=== PATIENT | female | born 1940 | race Two or more races ===

== ENCOUNTER 2024-05-23 07:15 | Day surgery (SDC) | payer OTHER ==
[2024-05-23] MEDS ORDERED: fentaNYL CITRATE 50 MCG/ML AMPUL IV ONE (10:00)
[2024-05-23] MEDS ORDERED: MIDAZOLAM HCL 2 MG/2 ML VIAL IV ONE (10:00)
== END 2024-05-23 11:30 | disposition home or self-care (01) ==
LOC: AMB-ENDOS 07:15
PROVIDERS: ATTEND Surgery
DX: K57.30 Diverticulosis of large intestine without perforation or abscess without bleeding (principal); K62.5 Hemorrhage of anus and rectum; K64.8 Other hemorrhoids; Z88.0 Allergy status to penicillin

== ENCOUNTER 2024-12-08 10:15 | Inpatient (IN) | payer OTHER ==
[~2024-12-08] VITALS: Ht 149.9 cm; Wt 44.0 kg
[2024-12-08 12:04] LABS: BASO % 0.3 % (0.1-1.2); EOS # 0.04 (0.04-0.54); EOS % 0.5 % (0.7-7.0); LYMPH # 2.20 (1.18-3.74); LYMPH % 24.9 % (19.3-53.1); MEAN PLATELET VOLUME 10.10 fl (9.4-12.4); MONO # 0.52 (0.24-0.82); MONO % 5.9 % (4.7-12.5); NEUT # 6.01 (1.56-6.13); NEUT % 68.1 % (34.0-71.1); RED CELL DISTRIBUTION WIDTH 14.0 % (11.6-14.4)
[2024-12-08 12:08] LABS: URINE APPEARANCE Clear; URINE BILIRRUBIN Negative (NEGATIVE); URINE BLOOD Moderate; URINE COLOR Dark Yellow; URINE GLUCOSE Negative (NEGATIVE); URINE KETONE Trace (NEGATIVE); URINE LEUKOCYTE Trace; URINE NITRATE Negative; URINE PROTEIN 30 (NEGATIVE); URINE UROBILINOGEN 0.2 E.U./dl
[2024-12-08 12:13] LABS: URINE BACTERIA 52.7 uL (0.0-1933); URINE EPITHELIAL CELLS 16.4 uL (0.0-38.8); URINE RBC 234.8 uL (0.0-20.8); URINE WBC 85.5 uL (0.0-23.2)
[2024-12-08 12:17] LABS: URINE CAST 0.43 uL (0.0-1.40)
[2024-12-08 12:28] LABS: INR 1.01
[2024-12-08 12:48] LABS: ALT/SGPT 40.0 U/L (12-78); AST/SGOT 28.0 U/L (15-37); BILIRUBIN TOTAL 0.47 mg/dL (0.3-1.2); BUN CREA RATIO 22.0 (7.0-25.0); CREATININE SERUM 0.91 mg/dL (0.55-1.02); GFR 58.75; GLOBULINA 3.2 G/DL (2.4-3.5); GLUCOSE FASTING 106.0 mg/dL (65-100); OSMOLALITY SERUM 282.0 MOSM/KG (275-295)
[2024-12-08] MEDS ORDERED: LIPITOR20 MG (13:25)
[2024-12-08] MEDS ORDERED: VASOTEC20 MG PO (13:25)
[2024-12-08] MEDS ORDERED: LEVOTHYROXINE25 MCG PO (13:25)
[2024-12-08] MEDS ORDERED: MAXIMUM D3325 MCG PO (13:26)
[2024-12-08] MEDS ORDERED: [UNRECOGNIZED DRUG - OTHER] (13:26)
[2024-12-08] MEDS ORDERED: TRAZODONE HCL100 MG PO (13:27)
[2024-12-08] MEDS ORDERED: ALENDRONATE SOD70 MG PO (13:27)
[2024-12-08] MEDS ORDERED: GALANTAMINE HBR24 MG PO (13:27)
[2024-12-08] MEDS ORDERED: CENTRUM ADULTS1 EACH PO (13:28)
[2024-12-12] MEDS ORDERED: METRONIDAZOLE/SODIUM CHLORIDE 500 MG/100 ML PIGGYBACK IV ONE ×2 (11:37→17:13)
[2024-12-12] MEDS ORDERED: OxyCODONE HCL 5 MG TABLET (ROXICODONE) PO PRN (13:45)
[2024-12-12] MEDS ORDERED: ONDANSETRON HCL 2 MG/ML VIAL IV PRN (13:45)
[2024-12-12] MEDS ORDERED: RINGERS SOLUTION,LACTATED 1,000 ML IV SCH (13:45)
[2024-12-12] MEDS ORDERED: MORPHINE SULFATE 4 MG/ML CARTRIDGE IV PRN (13:45)
[2024-12-12] MEDS ORDERED: ONDANSETRON HCL 2 MG/ML VIAL ONE (14:32)
[2024-12-12] MEDS ORDERED: ONDANSETRON HCL 2 MG/ML VIAL IV ONE (14:35)
[2024-12-12] MEDS ORDERED: METRONIDAZOLE/SODIUM CHLORIDE 500 MG/100 ML PIGGYBACK IV SCH (17:00)
[2024-12-12] MEDS ORDERED: CIPROFLOXACIN IN 5 % DEXTROSE 400 MG/200 ML PIGGYBAG IV SCH (17:00)
[2024-12-12] MEDS ORDERED: HYOSCYAMINE SULFATE 0.125 MG TAB.SUBL SL SCH (17:00)
[2024-12-12] MEDS ORDERED: GABAPENTIN 300 MG CAPSULE PO SCH (17:00)
[2024-12-12] MEDS ORDERED: LACTOBACILLUS ACIDOPHILUS 1 CAP CAP PO SCH (17:00)
[2024-12-12] MEDS ORDERED: TAMSULOSIN HCL 0.4 MG CAP PO SCH (17:00)
[2024-12-12] MEDS ORDERED: GABAPENTIN 300 MG CAPSULE PO ONE (17:13)
[2024-12-12] MEDS ORDERED: TAMSULOSIN HCL 0.4 MG CAP PO ONE (17:13)
[2024-12-12] MEDS ORDERED: CIPROFLOXACIN IN 5 % DEXTROSE 400 MG/200 ML PIGGYBAG IV ONE (17:13)
[2024-12-12] MEDS ORDERED: HYOSCYAMINE SULFATE 0.125 MG TAB.SUBL ONE (17:13)
[2024-12-12] MEDS ORDERED: ACETAMINOPHEN 500 MG GEL..CAP PO SCH (18:00)
[2024-12-12 18:59] VITALS: BP 130/72; O2SAT 97
[2024-12-12] MEDS ORDERED: PATIENTS OWN MEDICATION (MEDICAMENTO EN PHA) PO SCH (21:00)
[2024-12-12] MEDS ORDERED: FAMOTIDINE/PF 20 MG/2 ML VIAL IV PUSH SCH (21:00)
[2024-12-13] VITALS (8 sets, daily range): BP systolic 96–116; BP diastolic 63–71; O2SAT 90–97
[2024-12-13] MEDS ORDERED: PATIENTS OWN MEDICATION (MEDICAMENTO EN PISO) PO SCH ×2 (06:00→09:00)
[2024-12-13 07:54] LABS: BASO % 0.3 % (0.1-1.2); EOS # 0.00 (0.04-0.54); EOS % 0.0 % (0.7-7.0); LYMPH # 1.24 (1.18-3.74); LYMPH % 11.3 % (19.3-53.1); MEAN PLATELET VOLUME 10.20 fl (9.4-12.4); MONO # 0.75 (0.24-0.82); MONO % 6.9 % (4.7-12.5); NEUT # 8.89 (1.56-6.13); NEUT % 81.3 % (34.0-71.1); RED CELL DISTRIBUTION WIDTH 13.2 % (11.6-14.4)
[2024-12-13 08:05] LABS: BUN CREA RATIO 10.0 (7.0-25.0); CREATININE SERUM 0.78 mg/dL (0.55-1.02); GFR 70.19; GLUCOSE FASTING 126.0 mg/dL (65-100); OSMOLALITY SERUM 277.0 MOSM/KG (275-295)
[2024-12-13] MEDS ORDERED: ENALAPRIL MALEATE 20 MG TABLET PO SCH (09:00)
[2024-12-13] MEDS ORDERED: ATORVASTATIN CALCIUM 40 MG TABLET PO SCH (17:00)
[2024-12-13] MEDS ORDERED: ENOXAPARIN SODIUM 40 MG/0.4 ML SYRINGE SUBCUTANEO SCH (17:00)
[2024-12-13] MEDS ORDERED: TRAZODONE HCL 50 MG TABLET PO SCH (21:00)
[2024-12-14] VITALS (8 sets, daily range): BP systolic 101–118; BP diastolic 53–71; O2SAT 90–99
[2024-12-14] MEDS ORDERED: HALOPERIDOL LACTATE 5 MG/ML AMPUL ONE (01:49)
[2024-12-14] MEDS ORDERED: DIPHENHYDRAMINE HCL 50 MG/ML VIAL 1ML ONE (01:49)
[2024-12-14] MEDS ORDERED: HALOPERIDOL LACTATE 5 MG/ML AMPUL IV STA (02:08)
[2024-12-14] MEDS ORDERED: DIPHENHYDRAMINE HCL 50 MG/ML VIAL 1ML IV STA (02:09)
[2024-12-14] MEDS ORDERED: HALOPERIDOL LACTATE 5 MG/ML AMPUL IV PRN (02:15)
[2024-12-14] MEDS ORDERED: ENOXAPARIN SODIUM 40 MG/0.4 ML SYRINGE SUBCUTANEO SCH (09:00)
[2024-12-14 15:52] LABS: BASO % 0.3 % (0.1-1.2); EOS # 0.03 (0.04-0.54); EOS % 0.3 % (0.7-7.0); LYMPH # 1.12 (1.18-3.74); LYMPH % 9.4 % (19.3-53.1); MEAN PLATELET VOLUME 10.30 fl (9.4-12.4); MONO # 0.52 (0.24-0.82); MONO % 4.4 % (4.7-12.5); NEUT # 10.21 (1.56-6.13); NEUT % 85.3 % (34.0-71.1); RED CELL DISTRIBUTION WIDTH 13.7 % (11.6-14.4)
[2024-12-14 16:31] LABS: BUN CREA RATIO 9.0 (7.0-25.0); CREATININE SERUM 0.66 mg/dL (0.55-1.02); GFR 85.12; GLUCOSE FASTING 112.0 mg/dL (65-100); OSMOLALITY SERUM 283.0 MOSM/KG (275-295)
[2024-12-14] MEDS ORDERED: POTASSIUM PHOS,M-BASIC-D-BASIC 3 MM/ML VIAL IV ONE (17:00)
[2024-12-15 01:11] VITALS: BP 115/72; O2SAT 96
[2024-12-15 09:24] VITALS: O2SAT 86
[2024-12-15] MEDS ORDERED: GABAPENTIN 100 MG CAPSULE PO SCH (17:00)
[2024-12-15 17:47] VITALS: BP 124/76; O2SAT 95
[2024-12-15] MEDS ORDERED: TRAZODONE HCL 50 MG TABLET PO SCH (21:00)
[2024-12-16 02:11] VITALS: BP 124/79; O2SAT 97
[2024-12-16] MEDS ORDERED: PAIN RELIEVER500 M2 PO (07:52)
[2024-12-16] MEDS ORDERED: GABAPENTIN100 MG PO (07:52)
[2024-12-16] MEDS ORDERED: HYOSCYAMINE0.125 M1 SL (07:52)
[2024-12-16 16:00] VITALS: BP 124/73; O2SAT 98
== END 2024-12-16 16:11 | disposition home or self-care (01) | DRG 330 ==
LOC: SURG 12-12 07:00 → O/R 12-12 09:00 → SURG 12-12 10:15 → SURH 12-12 16:33
PROVIDERS: Internal Medicine Geriatric Medicine; ADMIT Surgery; ATTEND Surgery
PROC: 0DBP4ZZ Excision of Rectum, Percutaneous Endoscopic Approach (ICD-10-PCS; 2024-12-12)
PROC: 0DNW4ZZ Release Peritoneum, Percutaneous Endoscopic Approach (ICD-10-PCS; 2024-12-12)
PROC: 0TQB4ZZ Repair Bladder, Percutaneous Endoscopic Approach (ICD-10-PCS; 2024-12-12)
PROC: 0UQG4ZZ Repair Vagina, Percutaneous Endoscopic Approach (ICD-10-PCS; 2024-12-12)
PROC: 0DJD8ZZ Inspection of Lower Intestinal Tract, Via Natural or Artificial Opening Endoscopic (ICD-10-PCS; 2024-12-12)
PROC: 0DTN4ZZ Resection of Sigmoid Colon, Percutaneous Endoscopic Approach (ICD-10-PCS; principal; 2024-12-12 07:00)
PROC: BW2GYZZ Computerized Tomography (CT Scan) of Pelvic Region using Other Contrast (ICD-10-PCS; 2024-12-15)
DX: K57.20 Diverticulitis of large intestine with perforation and abscess without bleeding (principal); K56.690 Other partial intestinal obstruction; K62.5 Hemorrhage of anus and rectum; N82.3 Fistula of vagina to large intestine; N32.1 Vesicointestinal fistula; K66.0 Peritoneal adhesions (postprocedural) (postinfection); R93.5 Abnormal findings on diagnostic imaging of other abdominal regions, including retroperitoneum; D64.89 Other specified anemias; R41.0 Disorientation, unspecified; Z88.0 Allergy status to penicillin; E78.5 Hyperlipidemia, unspecified